=== PATIENT | male | born 1995 | race Caucasian/White ===

== ENCOUNTER 2016-07-22 17:20 | Emergency (ER) | payer OTHER ==
[~2016-07-22] VITALS: Ht 170.2 cm; Wt 99.3 kg
[~2016-07-22 17:20] MED LIST: FAMO1TAB47 PO; HYDCR1CL TOP; LEVE750T PO; LISI-461 PO; TPM/50 PO
[2016-07-22 17:23] VITALS: BP 138/83; PULSE 89; TEMP 36.7; O2SAT 97; Ht 170.2 cm; Wt 99.3 kg
[2016-07-22] MEDS ORDERED: FLUT0.15 NAE (17:41)
[2016-07-22] MEDS ORDERED: VNTHFA/IN INH (17:42)
[2016-07-22] MEDS ORDERED: XYLOCAINE 1%/SOD BICARB 20 ML VIAL INFIL ONE (17:45)
--- NOTE | 2016-07-22 18:02 | EMERGENCY ROOM VISIT NOTE ---
ED Visit Note First contact with patient: 17:35 CHIEF COMPLAINT: Left fifth Finger laceration HISTORY OF PRESENT ILLNESS: This 21-year-old male patient cut the left fifth finger with a pocket knife while he was trying to cut a stick.. The bleeding has stopped. Denies weakness or numbness of the finger. The patient's tetanus is up-to-date REVIEW OF SYSTEMS: 6 system review was performed and was negative unless stated otherwise in history of present illness. PMH: The patient is healthy; hypertension, asthma superficial phlebitis left arm, seizure disorder, sinus surgery SOCIAL HISTORY: Patient lives with his family. The patient admits to tobacco use but denies any alcohol use. PHYSICAL EXAM: Vital Signs: Were reviewed Reviewed Nurse's notes. GEN.: 21-year -old white male appears in no acute distress. MENTAL Status: Alert and oriented 3. LEFT FIFTH FINGER: There is a 1 cm long laceration on the dorsal aspect of the PIP joint. The edges gape apart with traction. There is no foreign material in the wound and it looks clean. There is no bleeding. No deep structures such as tendons or nerves are seen in the base of the wound. Extension of the finger is full and strong. EMERGENCY DEPARTMENT COURSE: The patient was evaluated. Wound Repair: Complexity: Basic. Verbal consent was obtained after the risks and benefits were explained, including but not limited to bleeding, scarring, infection, pain, and bone/joint /nerve damage. The skin was prepped with betadine and a sterile field set. The wound was anesthetized with 1.6ml of 1% buffered lidocaine. Copious irrigation was performed using sterile saline. The wound was explored for foreign bodies and none found. Debridement was not performed. The wound edges were approximated using 5-0 Ethilon with 3simple interrupted sutures. Hemostasis and excellent approximation was achieved. Antibacterial ointment and a sterile dressing applied. Detailed wound care instructions and signs and symptoms of infection reviewed with the patient. No complications and the patient tolerated the procedure well. The patient was placed in a metal finger splint. The patient was discharged home in stable condition. DIAGNOSIS: 1 cm left fifth finger laceration DISCHARGE INSTRUCTIONS & TREATMENT: Watch the area carefully for signs of infection such as redness, swelling, or tenderness. If any should occur, follow -up with your family doctor. Antibiotic ointment and a bandage for 2 days. Keep the wound dry for the first 24 hours. Ibuprofen as needed for pain. Wear finger splint except for bathing until sutures are removed. Suture removal in 8 days. Problem List Medical Problems: (1) Raynaud disease Status: Chronic (2) Seizure disorder Status: Chronic (3) Traumatic brain injury Status: Resolved Current/Historical Medications Scheduled Famotidine (Famotidine), 20 MG PO BID Fluticasone Propionate (Nasal) (Flonase Allergy Relief), 1 SPRAY MATT BID Levetiracetam (Keppra), 1,500 MG PO BID Lisinopril (Lisinopril), 15 MG PO DAILY Topiramate (Topamax), 50 MG PO BID Scheduled PRN Albuterol Hfa (Ventolin Hfa), 2 PUFFS INH Q6H PRN for SOB/Wheezing Allergies Coded Allergies: Sulfa Drugs (Verified Allergy, Mild, throat swelling/hives, 02/25/16) Adhesives (Verified Allergy, Unknown, blisters, 02/25/16) Penicillins (Verified Allergy, Unknown, throat swelling/hives, 02/25/16) Vital Signs Date Time Temp Pulse Resp B/P Pulse Ox O2 Delivery O2 Flow Rate FiO2 07/22/16 17:23 36.7 89 16 138/83 97 Room Air Departure Information Referrals Chantelle Thompson D.O. (PCP) Patient Instructions Formerly [facility]
== END 2016-07-22 18:13 | disposition home or self-care (01) ==
LOC: C.EDB 17:22 → C.EDD 18:13
DX: S61.217A Laceration without foreign body of left little finger without damage to nail, initial encounter (principal); W26.0XXA Contact with knife, initial encounter; Y93.89 Activity, other specified; I10 Essential (primary) hypertension; J45.909 Unspecified asthma, uncomplicated; G40.909 Epilepsy, unspecified, not intractable, without status epilepticus; F17.200 Nicotine dependence, unspecified, uncomplicated; I73.00 Raynaud's syndrome without gangrene; Z87.820 Personal history of traumatic brain injury; Z79.899 Other long term (current) drug therapy

== ENCOUNTER 2016-10-26 13:59 | Emergency (ER) | payer OTHER ==
[~2016-10-26] VITALS: Ht 170.2 cm; Wt 98.3 kg
[~2016-10-26 13:59] MED LIST changes: +FLUT0.15 NAE; -HYDCR1CL TOP; +VNTHFA/IN INH
[2016-10-26 14:20] VITALS: TEMP 36.8; Ht 170.2 cm; Wt 98.3 kg
[2016-10-26] MEDS ORDERED: ACETAMINOPHEN 500 MG TAB PO STA (15:13)
[2016-10-26] MEDS ORDERED: SODIUM CHLORIDE 0.9% 1000ML 1,000 ML IV ONE (15:15)
[2016-10-26] MEDS ORDERED: LISI-729 PO (15:24)
[2016-10-26 16:02] LABS: BASO % 0.5 %; BASO ABS # 0.04 K/uL (0-0.2); COMPLETE YES; EOS % 0.7 %; HEMATOCRIT 41.5 % (42-52); IG% 0.2 %; LYMPH % 24.6 %; LYMPH ABS # 2.14 K/uL (1.2-3.4); MEAN CELL VOLUME 91.4 fL (80-100); MEAN CORPUSCULAR HEMOGLOBIN 32.8 pg (25-34); MEAN CORPUSCULAR HGB CONC 35.9 g/dl (32-36); MEAN PLATELET VOLUME 11.9 fL (7.4-10.4); MONO % 8.4 %; NEUT % 65.6 %; PLATELET COUNT 236 K/uL (130-400); RED BLOOD COUNT 4.54 M/uL (4.7-6.1); WHITE BLOOD COUNT 8.71 K/uL (4.8-10.8)
[2016-10-26 16:04] LABS: URINE APPEARANCE CLEAR (CLEAR); URINE BILIRUBIN NEG (NEG); URINE COLOR YELLOW; URINE NITRITE NEG (NEG); URINE PH 6.5 (4.5-7.5); URINE SPECIFIC GRAVITY 1.022 (1.000-1.030); UROBILINOGEN NEG (NEG); ZZUR CULT IF INDIC CLEAN CATCH NO
[2016-10-26 16:09] LABS: MANUAL MICROSCOPIC REQUIRED? NO; REVIEW REQ? NO
--- NOTE | 2016-10-26 16:14 | DIAGNOSTIC IMAGING REPORT ---
TWO VIEW CHEST CLINICAL HISTORY: Hypertension. FINDINGS: PA and lateral chest radiographs are compared to study dated 09/17/2015. The cardiomediastinal silhouette is unremarkable. There is mild chronic elevation of the right hemidiaphragm. The lungs and pleural spaces are clear. There is no pneumothorax. The bony thorax appears intact. A ventricular shunt catheter traverses the left chest wall. IMPRESSION: No active disease in the chest. Electronically signed by: Fortino Stock M.D. 10/26/2016 4:13 PM Dictated Date/Time: 10/26/2016 4:12 PM
[2016-10-26 16:20] LABS: BUN/CREATININE RATIO 11.9 (10-20); CALCIUM 9.3 mg/dl (8.5-10.1); CREATININE 1.1 mg/dl (0.60-1.40); POTASSIUM 3.8 mmol/L (3.5-5.1)
[2016-10-26 16:31] LABS: ALB/GLOB RATIO 1.2 (0.9-2); THYROID STIMULATING HORMONE 1.88 uIu/ml (0.300-4.500)
[2016-10-26 16:36] LABS: BENZODIAZEPINE, URINE NEG (NEG); COCAINE,URINE NEG (NEG); PHENCYCLIDINE, URINE NEG (NEG)
[2016-10-26 16:57] LABS: LYME DISEASE AB IGG NEG (NEG); LYME DISEASE AB IGM NEG (NEG)
--- NOTE | 2016-10-26 17:21 | EMERGENCY ROOM VISIT NOTE ---
History First contact with patient: 15:01 Chief Complaint: HYPERTENSION Stated Complaint: HIGH BLOOD PRESSURE History of Present Illness The patient is a 21 year old male who presents to the Emergency Room with complaints of elevated blood pressure home. The patient states that he checked his blood pressure today was 130/110. He is on lisinopril daily, and has been on this for several years. He does not take stimulants and does not abuse caffeine or nicotine. The patient is without chest pain, chest tightness, shortness of breath, neck pain, or headache. He contacted his primary care physician regarding the blood pressure, and they referred him to the ER for evaluation. The patient does not have recent travel history. No fever at home. He does not have other complaints. He does not identify aggravating or alleviating factors. He rates his discomfort a 0/10. Review of Systems More than 10 systems were reviewed and otherwise negative with the exception of history of present illness. Past Medical/Surgical History Medical Problems: (1) Asthma, Unspecified (2) Depressive Disorder Nec (3) Hypertension Nos (4) Raynaud disease (5) Seizure disorder (6) Traumatic brain injury Family History Cancer Diabetes mellitus Gallbladder disease Heart disease Hypertension Kidney stones Social History Smoking Status: Never Smoker Alcohol Use: none Marital Status: single Housing Status: lives with family Occupation Status: unemployed Current/Historical Medications Scheduled Famotidine (Famotidine), 20 MG PO BID Fluticasone Propionate (Nasal) (Flonase Allergy Relief), 1 SPRAY MATT BID Levetiracetam (Keppra), 1,500 MG PO BID Lisinopril (Lisinopril), 10 MG PO HS Lisinopril (Zestril), 5 MG PO QAM Topiramate (Topamax), 50 MG PO BID Scheduled PRN Albuterol Hfa (Ventolin Hfa), 2 PUFFS INH Q6H PRN for SOB/Wheezing Allergies Coded Allergies: Sulfa Drugs (Verified Allergy, Mild, throat swelling/hives, 10/26/16) Adhesives (Verified Allergy, Unknown, blisters, 10/26/16) Penicillins (Verified Allergy, Unknown, throat swelling/hives, 10/26/16) Physical Exam Vital Signs Date Time Temp Pulse Resp B/P (MAP) Pulse Ox O2 Delivery O2 Flow Rate FiO2 10/26/16 15:28 Room Air 10/26/16 15:13 67 10/26/16 14:20 36.8 78 20 123/73 97 Room Air Physical Exam VITALS: Vitals are noted on the nurse's note and reviewed by myself. Vital signs stable. GENERAL: Well-developed, well-nourished, white male, who is in no acute distress and resting comfortably. Patient is cooperative with the examination. HEAD: Normocephalic atraumatic. EARS: External ear normal. External auditory canals clear, tympanic membranes pearly ortega without erythema or effusion bilaterally. EYES: Pupils equal round and reactive to light and accommodation. Conjunctivae without injection, sclerae without icterus. Extraocular movements intact. NOSE: Patent, turbinates without inflammation or discharge. MOUTH: Mucous membranes moist. Tonsils are not enlarged. Pharynx without erythema, blood, or exudate. Uvula midline. Airway patent. NECK: Supple without nuchal rigidity. No lymphadenopathy. No thyromegaly. Cervical spine is nontender. HEART: Regular rate and rhythm without murmurs gallops or rubs. LUNGS: Clear to auscultation bilaterally without wheezes, rales or rhonchi. No retractions or accessory muscle use. ABDOMEN: Positive normal bowel sounds x 4. Soft, nontender, without masses or organomegaly. No guarding or rebound tenderness. MUSCULOSKELETAL: No muscle atrophy, erythema, or edema noted. Full range of motion without joint tenderness in all extremities. No tenderness to palpation. Normal gait. Strength 5/5 throughout. NEURO: Patient was alert and oriented to person place and time. CN II through XII grossly intact. Deep tendon reflexes 2+ throughout. No focal neurological deficits SKIN: The skin was without rashes, erythema, edema, or bruising. Capillary reflex less than 2 seconds. Medical Decision & Procedures ER Provider Diagnostic Interpretation: TWO VIEW CHEST CLINICAL HISTORY: Hypertension. FINDINGS: PA and lateral chest radiographs are compared to study dated 09/17/2015. The cardiomediastinal silhouette is unremarkable. There is mild chronic elevation of the right hemidiaphragm. The lungs and pleural spaces are clear. There is no pneumothorax. The bony thorax appears intact. A ventricular shunt catheter traverses the left chest wall. IMPRESSION: No active disease in the chest. Laboratory Results 10/26/16 15:30 Red Blood Count 4.54, Mean Corpuscular Volume 91.4, Mean Corpuscular Hemoglobin 32.8, Mean Corpuscular Hemoglobin Concent 35.9, Mean Platelet Volume 11.9, Neutrophils (%) (Auto) 65.6, Lymphocytes (%) (Auto) 24.6, Monocytes (%) (Auto) 8.4, Eosinophils (%) (Auto) 0.7, Basophils (%) (Auto) 0.5, Neutrophils # (Auto) 5.72, Lymphocytes # (Auto) 2.14, Monocytes # (Auto) 0.73, Eosinophils # (Auto) 0.06, Basophils # (Auto) 0.04 10/26/16 15:30 Test 10/26/16 15:20 10/26/16 15:30 Urine Color YELLOW Urine Appearance CLEAR (CLEAR) Urine pH 6.5 (4.5-7.5) Urine Specific [place] 1.022 (1.000-1.030) Urine Protein NEG (NEG) Urine Glucose (UA) NEG (NEG) Urine Ketones NEG (NEG) Urine Occult Blood NEG (NEG) Urine Nitrite NEG (NEG) Urine Bilirubin NEG (NEG) Urine Urobilinogen NEG (NEG) Urine Leukocyte Esterase NEG (NEG) Urine Opiates Screen NEG (NEG) Urine Methadone, Qualitative NEG (NEG) Urine Barbiturates NEG (NEG) Urine Phencyclidine (PCP) Level NEG (NEG) Ur Amphetamine/Methamphetamine NEG (NEG) MDMA (Ecstasy) Screen NEG (NEG) Urine Benzodiazepines Screen NEG (NEG) Urine Cocaine Metabolite NEG (NEG) Urine Marijuana (THC) NEG (NEG) White Blood Count 8.71 K/uL (4.8-10.8) Red Blood Count 4.54 M/uL (4.7-6.1) Hemoglobin 14.9 g/dL (14.0-18.0) Hematocrit 41.5 % (42-52) Mean Corpuscular Volume 91.4 fL (80-100) Mean Corpuscular Hemoglobin 32.8 pg (25-34) Mean Corpuscular Hemoglobin Concent 35.9 g/dl (32-36) Platelet Count 236 K/uL (130-400) Mean Platelet Volume 11.9 fL (7.4-10.4) Neutrophils (%) (Auto) 65.6 % Lymphocytes (%) (Auto) 24.6 % Monocytes (%) (Auto) 8.4 % Eosinophils (%) (Auto) 0.7 % Basophils (%) (Auto) 0.5 % Neutrophils # (Auto) 5.72 K/uL (1.4-6.5) Lymphocytes # (Auto) 2.14 K/uL (1.2-3.4) Monocytes # (Auto) 0.73 K/uL (0.11-0.59) Eosinophils # (Auto) 0.06 K/uL (0-0.5) Basophils # (Auto) 0.04 K/uL (0-0.2) RDW Standard Deviation 42.6 fL (36.4-46.3) RDW Coefficient of Variation 12.7 % (11.5-14.5) Immature Granulocyte % (Auto) 0.2 % Immature Granulocyte # (Auto) 0.02 K/uL (0.00-0.02) Anion Gap 9.0 mmol/L (3-11) Est Creatinine Clear Calc Drug Dose 116.7 ml/min Estimated GFR () 109.1 Estimated GFR (Non- 94.1 BUN/Creatinine Ratio 11.9 (10-20) Calcium Level 9.3 mg/dl (8.5-10.1) Total Bilirubin 0.2 mg/dl (0.2-1) Aspartate Amino Transf (AST/SGOT) 23 U/L (15-37) Alanine Aminotransferase (ALT/SGPT) 72 U/L (12-78) Alkaline Phosphatase 88 U/L (45-117) Total Protein 7.0 gm/dl (6.4-8.2) Albumin 3.8 gm/dl (3.4-5.0) Globulin 3.2 gm/dl (2.5-4.0) Albumin/Globulin Ratio 1.2 (0.9-2) Thyroid Stimulating Hormone (TSH) 1.880 uIu/ml (0.300-4.500) Lyme Disease IgG Antibody NEG (NEG) Lyme Disease IgM Antibody NEG (NEG) Medications Administered Medications (Trade) Dose Ordered Sig/Jade Route Start Time Stop Time Status Last Admin Dose Admin Sodium Chloride 1,000 ml @ 999 mls/hr Q1H1M ONCE IV 10/26/16 15:15 10/26/16 16:15 DC 10/26/16 15:47 999 MLS/HR Acetaminophen (Tylenol Tab) 1,000 mg NOW STAT PO 10/26/16 15:13 10/26/16 15:16 DC 10/26/16 15:55 1,000 MG ECG Change: Normal sinus rhythm @69 bpm Normal ECG When compared with ECG of 25-FEB-2016 11:55, No significant change was found ED Course Physical exam and history were performed. Nursing notes, EMR, and Medication List were personally reviewed. Patient appears to have reports of elevated blood pressure at home today. The patient appears well on examination and is normotensive here in the department. EKG was performed and is as above. There is no evidence of ischemia or ectopy. IV access was established and labs were obtained. The patient was hydrated with normal saline. Chest x-ray was performed. The patient's blood work is as above and was reviewed. He does not have a significantly elevated white blood cell count, gross anemia, bandemia, or significant electrolyte imbalance. Transaminases are nondiagnostic. TSH is euthyroid. Urine is without evidence of infection. Drug of abuse screen is negative. Chest x-ray does not show acute findings. The patient remained normotensive and in normal sinus rhythm on the vocal music teacher. Overall the patient appears stable for discharge home. He has a long-standing history of hypertension and is on lisinopril. The patient does not appear to have an acute cardiopulmonary event causing an elevated blood pressure. His blood work and exam are benign. The patient will need to follow with his primary care physician for further care and management. He may need adjustments in his medications if symptoms persist. The patient was comfortable with being discharged home and was otherwise invited back to the emergency department with any new, worsening, or concerning symptoms. The chart was completed utilizing [employer] Speech Voice Recognition Software. Grammatical errors, random word insertions, pronoun errors, and incomplete sentences are an occasional consequence of this system due to software limitations, ambient noise, and hardware issues. Any formal questions or concerns about the content, text, or information contained within the body of this dictation should be directly addressed to the provider for clarification. . Medical Decision Differential diagnosis includes, but is not limited to: Myocardial infarction, dysrhythmia, pericarditis, pneumothorax, aortic aneurysm/dissection, DVT/PE, anxiety, GERD, PUD, electrolyte imbalance, thyroid disorder, pneumonia, bronchitis, pancreatitis, and others Impression Primary Impression: Elevated blood pressure reading Departure Information Dispostion Home / Self-Care Condition GOOD Forms HOME CARE DOCUMENTATION FORM, IMPORTANT VISIT INFORMATION Patient Instructions My [facility] Additional Instructions You were seen and evaluated today on an emergency basis only. This is not a substitute for, or an effort to provide, complete comprehensive medical care. It is not possible to recognize and treat all injuries or illnesses in a single emergency department visit. For this reason it is recommended that you followup with your primary care physician in the next week for recheck of your condition. Continue your lisinopril as previously instructed. Drink plenty of fluids and remain well hydrated. You are welcome to return to the emergency department anytime with new, worsening, or concerning symptoms.
[2016-10-26 17:30] VITALS: BP 122/76; PULSE 80; O2SAT 98
== END 2016-10-26 17:30 | disposition home or self-care (01) ==
LOC: C.EDB 14:01 → C.EDC 17:30
DX: R03.0 Elevated blood-pressure reading, without diagnosis of hypertension (principal); I10 Essential (primary) hypertension; F32.9 Major depressive disorder, single episode, unspecified; G40.909 Epilepsy, unspecified, not intractable, without status epilepticus; J45.909 Unspecified asthma, uncomplicated; Z87.820 Personal history of traumatic brain injury; Z88.0 Allergy status to penicillin; Z88.2 Allergy status to sulfonamides; Z91.09 Other allergy status, other than to drugs and biological substances; Z80.9 Family history of malignant neoplasm, unspecified; Z83.3 Family history of diabetes mellitus; Z83.79 Family history of other diseases of the digestive system; Z82.49 Family history of ischemic heart disease and other diseases of the circulatory system; Z84.1 Family history of disorders of kidney and ureter

== ENCOUNTER 2016-12-18 10:37 | Emergency (ER) | payer OTHER ==
[~2016-12-18] VITALS: Ht 170.2 cm; Wt 98.7 kg
[~2016-12-18 10:37] MED LIST changes: +LISI-729 PO
[2016-12-18 10:45] VITALS: TEMP 36.8; Ht 170.2 cm; Wt 98.7 kg
--- NOTE | 2016-12-18 11:26 | DIAGNOSTIC IMAGING REPORT ---
RIGHT ANKLE MIN 3 VIEWS ROUTINE HISTORY: 21 years-old Male right ankle injury Right acute right ankle pain status post twisting injury. Initial exam. COMPARISON: None available. TECHNIQUE: 3 views of the right ankle FINDINGS: There is mild spurring of the medial malleolus. No acute fracture, dislocation or significant degenerative changes. No osteochondral defect. Mild soft tissue swelling is seen circumferentially about the ankle with small joint effusion. No opaque foreign body. IMPRESSION: 1. No fracture or dislocation. 2. Mild soft tissue swelling with small joint effusion. The above report was generated using voice recognition software. It may contain grammatical, syntax or spelling errors. Electronically signed by: Brain Garber M.D. 12/18/2016 11:25 AM Dictated Date/Time: 12/18/2016 11:22 AM
--- NOTE | 2016-12-18 11:54 | EMERGENCY ROOM VISIT NOTE ---
ED Visit Note First contact with patient: 10:49 CHIEF COMPLAINT: Ankle pain HISTORY OF PRESENT ILLNESS: This 21-year-old male patient presents to the emergency department ambulatory after sustaining an injury to the right ankle and foot with a twisting, inversion motion which occurred yesterday. The patient states that yesterday evening, he stepped off of a trailer into a rut and twisted his right foot. The patient complains of pain along the outside of the ankle. The patient denies pain of the foot. The patient rates the pain as dull and 4/10. The patient is able to bear weight on the foot. Constant pain, worse with movement, weight bearing, and the dependent position. No knee pain, the patient is able to move their toes. No numbness or weakness of the foot, no laceration. The patient has not had a previous fracture to this ankle. The patient has taken no medications for the pain. The patient denies any other injury. REVIEW OF SYSTEMS: A 6 system review of systems was completed with positives and pertinent negatives listed in the HPI. ALLERGIES: Adhesives, penicillins, sulfa antibiotics MEDICATIONS: See med list PMH: Seizures SOCIAL HISTORY: The patient lives locally with family. He is a smoker. PHYSICAL EXAM: Vital Signs: Reviewed Nurse's notes, vital signs stable. GENERAL : This is a 21-year-old male, no acute distress, but appears in pain, well- developed, well-nourished. MENTAL STATUS: Alert, oriented to person place and time, and cooperative. MUSCULOSKELETAL: The right ankle is swollen and tender over the lateral malleolus, but the skin is intact and there is no ligamentous instability. There is no fifth metatarsal tenderness. There is no tenderness over the rest of the foot. There is no calf or tibia/fibular tenderness. There is no visual deformity. The foot and toes are warm and well-perfused. Dorsalis pedis pulse 2+. Sensation to pain and light touch is intact. Capillary refill less than 2 seconds. RADIOGRAPHIC FINDINGS: RIGHT ANKLE MIN 3 VIEWS ROUTINE FINDINGS: There is mild spurring of the medial malleolus. No acute fracture, dislocation or significant degenerative changes. No osteochondral defect. Mild soft tissue swelling is seen circumferentially about the ankle with small joint effusion. No opaque foreign body. IMPRESSION: 1. No fracture or dislocation. 2. Mild soft tissue swelling with small joint effusion. EMERGENCY DEPARTMENT COURSE: I examined the patient. X-rays of the right ankle were reviewed by myself and read by radiology and reveal no acute fractures. Gel ankle splint was applied to the ankle under my direction and the position was satisfactory. Neurovascular status was rechecked and intact. Conservative measures were discussed. He was given orthopedic information for follow-up. The patient was discharged home in good condition. DIAGNOSIS: Right ankle injury Problem List Medical Problems: (1) Raynaud disease Status: Chronic (2) Seizure disorder Status: Chronic (3) Traumatic brain injury Status: Resolved Current/Historical Medications Scheduled Famotidine (Famotidine), 20 MG PO BID Fluticasone Propionate (Nasal) (Flonase Allergy Relief), 1 SPRAY MATT BID Levetiracetam (Keppra), 1,500 MG PO BID Lisinopril (Lisinopril), 10 MG PO HS Lisinopril (Zestril), 5 MG PO QAM Topiramate (Topamax), 50 MG PO BID Scheduled PRN Albuterol Hfa (Ventolin Hfa), 2 PUFFS INH Q6H PRN for SOB/Wheezing Allergies Coded Allergies: Sulfa Drugs (Verified Allergy, Mild, throat swelling/hives, 12/18/16) Adhesives (Verified Allergy, Unknown, blisters, 12/18/16) Penicillins (Verified Allergy, Unknown, throat swelling/hives, 12/18/16) Vital Signs Date Time Temp Pulse Resp B/P (MAP) Pulse Ox O2 Delivery O2 Flow Rate FiO2 12/18/16 12:05 77 20 126/78 93 12/18/16 10:45 36.8 93 16 126/84 97 Room Air Departure Information Impression Primary Impression: Right ankle injury Dispostion Home / Self-Care Condition GOOD Referrals Chantelle Thompson D.O. (PCP) Sabas Wang M.D. Patient Instructions My [facility] Additional Instructions You have been treated in the Emergency Department for an Ankle injury. For pain control, you can use the following [id number] medicines (if >12 yo): - Regular strength (325mg/tab) Tylenol (acetaminophen) 2 tabs every 4-6 hours as needed. Do not exceed 12 tablets in a 24 hour period. Avoid taking more than 4 grams (4000 mg) of Tylenol per day. This includes any other sources of acetaminophen you may take on a regular basis. - Regular strength (200 mg/tab) Advil (ibuprofen) 1-2 tabs every 4-6 hours as needed. Do not exceed a dose of 3200 mg per day. If this is a recent injury (<24 hrs), ice can be applied to the area of pain for the first 3 days to help decrease pain and inflammation. Wear the brace as needed for pain and difficulty walking. Follow up with orthopedics as needed for persistent pain or difficulty walking. Return to the Emergency Department if your current symptoms worsen despite treatment course outlined above, or if you develop any of the following symptoms : intractable pain despite aforementioned treatment course or new onset of numbness or tingling of the foot.
[2016-12-18 12:05] VITALS: BP 126/78; PULSE 77; O2SAT 93
== END 2016-12-18 12:07 | disposition home or self-care (01) ==
LOC: C.EDB 10:39 → C.EDD 12:07
DX: S99.911A Unspecified injury of right ankle, initial encounter (principal); X50.9XXA Other and unspecified overexertion or strenuous movements or postures, initial encounter; R56.9 Unspecified convulsions; I73.00 Raynaud's syndrome without gangrene

== ENCOUNTER 2017-04-14 12:16 | Emergency (ER) | payer OTHER ==
[~2017-04-14] VITALS: Ht 170.2 cm; Wt 96.0 kg
[2017-04-14 12:24] VITALS: TEMP 36.8; Ht 170.2 cm; Wt 96.0 kg
[2017-04-14] MEDS ORDERED: SODIUM CHLORIDE 0.9% 1000ML 1,000 ML IV STA (12:46)
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
--- NOTE | 2017-04-14 13:06 | DIAGNOSTIC IMAGING REPORT ---
CHEST ONE VIEW PORTABLE CLINICAL HISTORY: 22 years-old Male presenting with CHEST PAIN. TECHNIQUE: Portable upright AP view of the chest was obtained. COMPARISON: 10/26/2016. FINDINGS: Ventricular peritoneal shunt descends along the left hemithorax. Cardiac mediastinal silhouette normal. Artifacts noted across the lung bases. Lungs and pleural spaces clear. Osseous structures normal. Upper abdomen normal. IMPRESSION: 1. No acute cardiopulmonary disease. Electronically signed by: Felix Venegas M.D. 04/14/2017 1:04 PM Dictated Date/Time: 04/14/2017 1:04 PM
[2017-04-14 13:39] LABS: BASO % 0.9 %; BASO ABS # 0.06 K/uL (0-0.2); EOS % 1.6 %; EOS ABS # 0.11 K/uL (0-0.5); HEMATOCRIT 47.9 % (42-52); HEMOGLOBIN 17.1 g/dL (14.0-18.0); IG# 0.01 K/uL (0.00-0.02); LYMPH % 27.6 %; LYMPH ABS # 1.93 K/uL (1.2-3.4); MEAN CELL VOLUME 90.2 fL (80-100); MEAN CORPUSCULAR HEMOGLOBIN 32.2 pg (25-34); MEAN CORPUSCULAR HGB CONC 35.7 g/dl (32-36); MEAN PLATELET VOLUME 11.4 fL (7.4-10.4); MONO % 7.6 %; MONO ABS # 0.53 K/uL (0.11-0.59); NEUT % 62.2 %; NEUT ABS # 4.35 K/uL (1.4-6.5); PLATELET COUNT 245 K/uL (130-400); RED CELL DISTRIBUTION WIDTH CV 12.3 % (11.5-14.5); RED CELL DISTRIBUTION WIDTH SD 40.2 fL (36.4-46.3); WHITE BLOOD COUNT 6.99 K/uL (4.8-10.8)
[2017-04-14 14:20] LABS: ALBUMIN 4.1 gm/dl (3.4-5.0); CALCIUM 9.1 mg/dl (8.5-10.1); CREATININE 0.93 mg/dl (0.60-1.40); TOTAL PROTEIN 7.9 gm/dl (6.4-8.2)
--- NOTE | 2017-04-14 14:31 | DIAGNOSTIC IMAGING REPORT ---
GALLBLADDER-ABD LIMITED CLINICAL HISTORY: 22 years-old Male presenting with eval for GB disease. TECHNIQUE: Real-time grayscale and limited color Doppler ultrasound imaging of the abdomen limited to the right upper quadrant was performed. COMPARISON: 08/28/[address] from 09/17/2015. FINDINGS: Pancreas: Visualized portions of the pancreatic head and body normal. Liver: Moderately hyperechogenic parenchyma with partial obscuration of the right hemidiaphragm, likely indicating moderate steatosis. The liver measures cm in maximal sagittal dimension. Fatty sparing suggested at the gallbladder fossa. Main portal vein patent with normal directional flow. Biliary: No intrahepatic biliary ductal dilatation. Common bile duct measures up to 4 mm in diameter. Gallbladder: No evidence of gallstones, gallbladder wall thickening, gallbladder distention, or pericholecystic fluid or inflammatory change. Right kidney: Normal in appearance. No hydronephrosis. Ascites: None. IMPRESSION: 1. Hepatic steatosis. Correlate with liver function tests to exclude steatohepatitis as a cause for abdominal pain. 2. No cholelithiasis or bladder ductal dilatation. Electronically signed by: Felix Venegas M.D. 04/14/2017 2:29 PM Dictated Date/Time: 04/14/2017 2:27 PM
[2017-04-14] MEDS ORDERED: SERT1TAB88 PO (14:59)
[2017-04-14 15:25] VITALS: BP 113/64; PULSE 62; O2SAT 98
== END 2017-04-14 15:25 | disposition home or self-care (01) ==
LOC: C.EDB 12:17 → C.EDC 15:25
DX: R10.11 Right upper quadrant pain (principal); J45.909 Unspecified asthma, uncomplicated; F32.9 Major depressive disorder, single episode, unspecified; I10 Essential (primary) hypertension; I73.00 Raynaud's syndrome without gangrene; G40.909 Epilepsy, unspecified, not intractable, without status epilepticus; Z83.3 Family history of diabetes mellitus; Z82.49 Family history of ischemic heart disease and other diseases of the circulatory system; F17.200 Nicotine dependence, unspecified, uncomplicated

== ENCOUNTER 2017-04-24 21:18 | Emergency (ER) | payer OTHER ==
[~2017-04-24] VITALS: Ht 170.2 cm; Wt 95.6 kg
[~2017-04-24 21:18] MED LIST changes: +SERT1TAB88 PO
[2017-04-24 21:40] VITALS: TEMP 36.7; Ht 170.2 cm; Wt 95.6 kg
--- NOTE | 2017-04-24 22:30 | DIAGNOSTIC IMAGING REPORT ---
R TIBIA/FIBULA 2 VIEWS ROUTINE CLINICAL HISTORY: Right leg pain status post trauma COMPARISON: None. DISCUSSION: No acute fractures or dislocations are visualized. IMPRESSION: No fractures identified. Electronically signed by: Louis Davies M.D. 04/24/2017 10:28 PM Dictated Date/Time: 04/24/2017 10:28 PM
--- NOTE | 2017-04-24 22:50 | DIAGNOSTIC IMAGING REPORT ---
(CHEST) THORAX WITHOUT CLINICAL HISTORY: Left lateral rib pain status post trauma COMPARISON STUDY: No previous studies for comparison. CT DOSE: 518.01 mGy.cm TECHNIQUE: CT of the thorax was performed from the thoracic inlet to the lung bases. Images are reviewed in the axial, sagittal, and coronal planes. IV contrast was not administered for this examination. A dose lowering technique was utilized adhering to the principles of ALARA. FINDINGS: Thyroid: Imaged portions of the thyroid gland are normal in appearance. Thoracic aorta: The thoracic aorta is normal in course and caliber, noting standard 3 vessel arch anatomy. Heart: The heart is normal in size and configuration, without pericardial effusion. Lungs and pleural spaces: There is no pneumothorax. There are no pleural effusions. There is no focal pulmonary consolidation. Mediastinum: There is no mediastinal lymphadenopathy. Connie: There is no evidence of pathologic hilar adenopathy given the limitations of a noncontrast study Axilla: There is no evidence of pathologic axillary lymphadenopathy Upper abdomen: Partially visualized upper abdominal viscera is within normal limits. Skeletal structures: No fractures are visualized. IMPRESSION: No evidence of acute intrathoracic injury. Electronically signed by: Louis Davies M.D. 04/24/2017 10:49 PM Dictated Date/Time: 04/24/2017 10:46 PM
[2017-04-24 23:12] VITALS: BP 132/86; PULSE 80; O2SAT 98
--- NOTE | 2017-04-25 00:32 | EMERGENCY ROOM VISIT NOTE ---
ED Visit Note First contact with patient: 22:07 I have personally evaluated this patient examined her and reviewed the pertinent labs and data. I have discussed the case with Xiomara Jones, the physician assistant women's rowing coach and agree with the plan. Please refer to the PA note. This patient comes in after suffering a fall and hitting his chest on an object. He has minimal tenderness on exam .his abdomen is benign imaging was negative. He will be discharged home and return if any new problems or concerns.
--- NOTE | 2017-04-25 00:38 | EMERGENCY ROOM VISIT NOTE ---
History First contact with patient: 22:07 Chief Complaint: FALL Stated Complaint: FELL,HURT L RIBCAGE AND R WHITING History of Present Illness The patient is a 22 year old male who presents to the Emergency Room with complaints of left lateral chest wall pain and right whiting pain after he tripped over a pipe walking in the dark. Tetanus is current. Pain currently 5 out of 10. Worse with movement and better with rest. It does not radiate. No prior fractures to this area. Patient denies head injury, neck pain, back pain, abdominal pain, dyspnea, numbness, tingling or any other medical complaints. Review of Systems See HPI for pertinent positives & negatives. A total of 10 systems reviewed and were otherwise negative. Past Medical/Surgical History Medical Problems: (1) Asthma, Unspecified (2) Depressive Disorder Nec (3) Hypertension Nos (4) Raynaud disease (5) Seizure disorder (6) Traumatic brain injury Family History Cancer Diabetes mellitus Gallbladder disease Heart disease Hypertension Kidney stones Social History Smoking Status: Current Some Day Smoker Smokeless Tobacco Use: Yes Alcohol Use: none Marital Status: single Housing Status: lives with family Occupation Status: unemployed Current/Historical Medications Scheduled Famotidine (Famotidine), 20 MG PO BID Fluticasone Propionate (Nasal) (Flonase Allergy Relief), 1 SPRAY MATT BID Levetiracetam (Keppra), 1,500 MG PO BID Lisinopril (Lisinopril), 10 MG PO HS Lisinopril (Zestril), 5 MG PO QAM Topiramate (Topamax), 50 MG PO BID Scheduled PRN Albuterol Hfa (Ventolin Hfa), 2 PUFFS INH Q6H PRN for SOB/Wheezing Physical Exam Vital Signs Date Time Temp Pulse Resp B/P (MAP) Pulse Ox O2 Delivery O2 Flow Rate FiO2 04/24/17 23:12 80 18 132/86 98 04/24/17 21:40 36.7 75 18 131/84 98 Room Air Physical Exam PHYSICAL EXAM: VITALS: Vitals are noted on the nurse's note and reviewed by myself. Vital signs stable. GENERAL: Pleasant male spitting chew tobacco in front of me, in no acute distress, nondiaphoretic, well-developed well-nourished. SKIN: Superficial abrasion to right mid chin without signs of infection and bleeding controlled The rest of the skin was without obvious lacerations or abrasions. Capillary reflex less than 2 seconds. HEAD: Normocephalic atraumatic. EARS: External auditory canals clear, tympanic membranes pearly ortega without erythema or effusion bilaterally. No hemotympanums. No silva sign. No mastoid tenderness. EYES: Pupils equal round and reactive to light and accommodation. Conjunctivae without injection, sclerae without icterus. Extraocular movements intact. NOSE: Patent, turbinates without inflammation or discharge. No sinus tenderness. No septal hematoma or bleeding. FACE: No facial bone tenderness. Full range of motion of the jaw without tenderness. MOUTH: Mucous membranes moist. Pharynx without erythema or exudate. Uvula midline. Airway patent. Tongue does not deviate. NECK: Supple without nuchal rigidity. Cervical spine is nontender. Full range of motion of the neck without tenderness. No JVD. HEART: Regular rate and rhythm without murmurs gallops or rubs. LUNGS: Clear to auscultation bilaterally without wheezes, rales or rhonchi. No dullness to percussion. No retractions or accessory muscle use. Left lateral chest wall tenderness easily reproducing symptoms. ABDOMEN: Positive bowel sounds x 4. Normal tympanic percussion. Soft, nontender, without masses or organomegaly. No guarding or rebound tenderness. MUSCULOSKELETAL: No tenderness of the thoracic or lumbar spine. No tenderness with pelvic rocking. Right midshin minimally tender to palpation without deformity. Full range of motion without tenderness to palpation in all other extremities. Normal gait. Strength 5/5 throughout. NEURO: Patient was alert and oriented to person place and time. Normal sensation to light and sharp touch. No focal neurological deficits. Medical Decision & Procedures ED Course Prior records/ancillary studies reviewed. Triage Nursing notes reviewed. Additional history obtained from family. The patient's history was concerning for traumatic injury Differential diagnosis: Etiologies such as fracture, dislocation, intra-abdominal, pneumothorax, intrathoracic , intracranial, neurologic, as well as other traumatic pathologies were entertained. Physical examination findings: As above. The patients vitals were stable. ER treatment provided: Wound care by nursing, incentive spirometry Patient declined pain meds On reassessment the patient felt better. Vital signs were stable. Diagnostic interpretation by me: Imaging studies: [] R TIBIA/FIBULA 2 VIEWS ROUTINE CLINICAL HISTORY: Right leg pain status post trauma COMPARISON: None. DISCUSSION: No acute fractures or dislocations are visualized. IMPRESSION: No fractures identified. FINDINGS: Thyroid: Imaged portions of the thyroid gland are normal in appearance. Thoracic aorta: The thoracic aorta is normal in course and caliber, noting standard 3 vessel arch anatomy. Heart: The heart is normal in size and configuration, without pericardial effusion. Lungs and pleural spaces: There is no pneumothorax. There are no pleural effusions. There is no focal pulmonary consolidation. Mediastinum: There is no mediastinal lymphadenopathy. Connie: There is no evidence of pathologic hilar adenopathy given the limitations of a noncontrast study Axilla: There is no evidence of pathologic axillary lymphadenopathy Upper abdomen: Partially visualized upper abdominal viscera is within normal limits. Skeletal structures: No fractures are visualized. IMPRESSION: No evidence of acute intrathoracic injury. Electronically signed by: Louis Davies M.D. 04/24/2017 10:49 PM Electronically signed by: Louis Davies M.D. 04/24/2017 10:28 PM Dictated Date/Time: 04/24/2017 10:28 PM This appears to be consistent with chest wall injury, abrasion and leg injury. Patient was neurovascularly and neurologically intact. No other injuries are noted. He was ambulating without difficulties. He was advised to do incentive spirometry and counseled on wound care. He was advised to follow-up family care in a few days or here in the ER sooner for chest pain, difficulty breathing, worsening signs or symptoms or as needed. Patient's tetanus was current per his report. By the evaluation outlined above emergent etiologies such as fracture, dislocation, intra-abdominal, pneumothorax, pulmonary contusion, hemothorax, intracranial, neurologic,as well as others were deemed relatively unlikely. The pt informed about the findings as listed above. All questions were answered and pleased with the treatment. Return instructions were outlined and the patient was discharged in stable condition. Referral: The patient was referred to PCP for follow-up in 2 to 3 days for a recheck of the current condition. case reviewed with my Attending. The chart was completed utilizing [employer] recognition software. Grammatical errors, random word insertions, pronoun errors, and incomplete sentences are an occassional consequence of this system due to software limitations, ambient noise, and hardware issues. Any formal questions or concerns about the content, text, or information contained within the body of this dictation should be directly addressed to the physician assurance assistant for clarification. Medical Decision As above Head Trauma GCS Score: 15 Medication Reconcilliation Current Medication List: was personally reviewed by me Blood Pressure Screening Patient's blood pressure: Normal blood pressure Impression Primary Impression: Chest wall injury Additional Impressions: Abrasion of right lower leg Injury of right whiting Fall Departure Information Dispostion Home / Self-Care Condition GOOD Forms HOME CARE DOCUMENTATION FORM, IMPORTANT VISIT INFORMATION Patient Instructions My [facility], ED Abrasion, ED Contusion Rib Additional Instructions Strongly recommend that you quit chewing tobacco and smoking. Incentive spirometry 10 times an hour while you're awake for the next 2 weeks. Ibuprofen(Motrin, Advil) may be used for fever or pain. Use 600mg every six hours as needed. Take with food. Avoid using more than 2400mg in a 24 hour period. Do not use 2400mg per day for more than three consecutive days without physician direction. Prolonged inappropriate use can lead to stomach upset or ulcers. (AND/OR) Acetaminophen(Tylenol) may be used for fever or pain. Use 1000mg every six hours as needed. Avoid using more than 3000mg in a 24 hour period. Rest and drink plenty of fluids as tolerated. Continue current medications. Avoid strenuous activities and anything that worsens your pain. Resume normal activities once your symptoms resolve. Return to the ER immediately for worsening or persistent chest pain, abdominal pain, vomiting, fevers, chest pains, difficulty breathing, worsening of your condition, or as needed. Follow up with your primary physician in 2-3 days for a recheck of your current condition. Abrasion: Antibiotic ointment and bandage to the areas until healed. Follow up with family doctor or return for any signs of infection (increasing redness, swelling , drainage, or fever). Keep covered when in sun until fully healed then SPF 50 or higher until scar healed. Problem Qualifiers Primary Impression: Chest wall injury Encounter type: initial encounter Qualified Codes: S29.9XXA - Unspecified injury of thorax, initial encounter
== END 2017-04-24 23:12 | disposition home or self-care (01) ==
LOC: C.EDB 21:20 → C.EDD 23:12
DX: S29.9XXA Unspecified injury of thorax, initial encounter (principal); S80.811A Abrasion, right lower leg, initial encounter; S00.81XA Abrasion of other part of head, initial encounter; W18.09XA Striking against other object with subsequent fall, initial encounter; J45.909 Unspecified asthma, uncomplicated; I10 Essential (primary) hypertension; G40.909 Epilepsy, unspecified, not intractable, without status epilepticus; I73.00 Raynaud's syndrome without gangrene; F17.200 Nicotine dependence, unspecified, uncomplicated; F17.220 Nicotine dependence, chewing tobacco, uncomplicated; Z87.820 Personal history of traumatic brain injury; Z79.899 Other long term (current) drug therapy; Z83.3 Family history of diabetes mellitus; Z82.49 Family history of ischemic heart disease and other diseases of the circulatory system; Z84.1 Family history of disorders of kidney and ureter

== ENCOUNTER 2017-05-04 17:03 | Emergency (ER) | payer OTHER ==
[~2017-05-04] VITALS: Ht 167.6 cm; Wt 97.7 kg
[~2017-05-04 17:03] MED LIST changes: -SERT1TAB88 PO
[2017-05-04 17:05] VITALS: TEMP 37; Ht 167.6 cm; Wt 97.7 kg
[2017-05-04] MEDS ORDERED: KETOROLAC TROMETHAMINE 30 MG/ML VIAL IV STA (17:26)
[2017-05-04] MEDS ORDERED: DiphenhydrAMINE HCL 50 MG/ML VIAL IV STA (17:26)
[2017-05-04] MEDS ORDERED: PROCHLORPERAZINE 5 MG/ML 2 ML VIAL IV STA (17:26)
[2017-05-04] MEDS ORDERED: SODIUM CHLORIDE 0.9% 1000ML 1,000 ML IV ONE (17:30)
--- NOTE | 2017-05-04 17:32 | EMERGENCY ROOM VISIT NOTE ---
History First contact with patient: 17:10 Chief Complaint: HEADACHE Stated Complaint: LIGHT HEADED,DIZZY,HEADACHE History of Present Illness The patient is a 22 year old male who presents to the Emergency Room with complaints of lightheadedness and a slight headache for the last 5 days. His symptoms are worse upon standing, and better lying down. He has tried ibuprofen with minimal relief. He reports eating and drinking normally. No infectious symptoms such as cough or fever. He denies any chest pain or pressure. No heart palpitations. No difficulty breathing. 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 He has a shunt placed. He denies any recent seizures. No changes in his seizure medication. He was however started on Topamax 6 days ago for reported anger management issues. Review of Systems 10 system review performed and negative unless noted in HPI or below Past Medical/Surgical History Medical Problems: (1) Asthma, Unspecified (2) Depressive Disorder Nec (3) Hypertension Nos (4) Raynaud disease (5) Seizure disorder (6) Traumatic brain injury Family History Cancer Diabetes mellitus Gallbladder disease Heart disease Hypertension Kidney stones Social History Smoking Status: Current Some Day Smoker Alcohol Use: none Marital Status: single Housing Status: lives with family Occupation Status: unemployed Current/Historical Medications Scheduled Famotidine (Famotidine), 20 MG PO BID Fluticasone Propionate (Nasal) (Flonase Allergy Relief), 1 SPRAY MATT BID Levetiracetam (Keppra), 1,500 MG PO BID Lisinopril (Lisinopril), 10 MG PO HS Lisinopril (Zestril), 5 MG PO QAM Topiramate (Topamax), 50 MG PO BID Topiramate (Topiramate), 25 MG PO BID Scheduled PRN Albuterol Hfa (Ventolin Hfa), 2 PUFFS INH Q6H PRN for SOB/Wheezing Physical Exam Vital Signs Date Time Temp Pulse Resp B/P (MAP) Pulse Ox O2 Delivery O2 Flow Rate FiO2 05/04/17 19:17 93 16 115/68 98 Room Air 05/04/17 17:46 110 18 117/69 99 Room Air 117 129/76 105 127/71 05/04/17 17:05 37.0 86 20 144/83 98 Room Air Physical Exam VITALS: Vitals are noted on the nurse's note and reviewed by myself. Vital signs stable. GENERAL: 22-year-old male, in no acute distress, nondiaphoretic, well-developed well-nourished. SKIN: The skin was without rashes, erythema, edema, or bruising. HEAD: Well-healed scar noted over the forehead. Otherwise, atraumatic and normocephalic. EARS: External auditory canals clear, tympanic membranes pearly ortega without erythema or effusion bilaterally. EYES: Pupils equal round and reactive to light and accommodation. Conjunctivae without injection, sclerae without icterus. Extraocular movements intact. MOUTH: Mucous membranes fairly dry NECK: Supple without nuchal rigidity. Cervical spine is nontender. No JVD. HEART: Regular rate and rhythm without murmurs gallops or rubs. LUNGS: Clear to auscultation bilaterally without wheezes, rales or rhonchi. No accessory muscle use. ABDOMEN: Positive bowel sounds x 4.Soft, MUSCULOSKELETAL: No muscle atrophy, erythema, or edema noted. Strength 5/5 throughout. NEURO: Patient was alert and oriented to person place and time. Cerebellar function intact. Normal sensation to touch. No focal neurological deficits. Medical Decision & Procedures ER Provider Diagnostic Interpretation: CT head without contrast Patient Name: YANDEL CRABTREE Unit Number: [id number] Dictated: 05/04/171819 Transcribed: 05/04/171819 [facility] Printed Date/Time: [~ rep prt dt]/[~ rep prt tm] [~ rep ct labl] - [~ rep ct ivnm] [facility] [place] [address] Dictated: 05/04/171819 Transcribed: 05/04/171819 [facility] Printed Date/Time: [~ rep prt dt]/[~ rep prt tm] [~ rep ct labl] - [~ rep ct ivnm] IMPRESSION: 1. No acute intracranial abnormality identified. No acute intracranial hemorrhage. 2. Chronic changes as above with unchanged positioning of left frontal shunt catheter. 3. Persistent ventricular dilation. The above report was generated using voice recognition software. It may contain grammatical, syntax or spelling errors. Electronically signed by: Brain Garber M.D. 05/04/2017 6:27 PM Dictated Date/Time: 05/04/2017 6:20 PM The status of this report is Signed. Draft = Not yet reviewed or approved by Radiologist. Signed = Reviewed and approved by Radiologist. <AttendingPhy></AttendingPhy> <FamilyPhy>Chantelle Thompson D.O.</FamilyPhy> < PrimaryPhy>Chantelle Thompson D.O.</PrimaryPhy> <UnitNumber>[id number]</ UnitNumber> <VisitNumber>[id number]</VisitNumber> <PatientName>YANDEL CRABTREE</PatientName> <DateOfBirth>1995</DateOfBirth> <Location>C.[facility] </Location> <ServiceDate>05/04/17</ServiceDate> <MNE>ESINDI</MNE> <OrderingPhy> Maureen Leonardo PA-C</OrderingPhy> <OrderingPhyMNE>f rep ord dr salvador</ OrderingPhyMNE> <DictatingPhyMNE>f rep dict dr salvador</DictatingPhyMNE> <CCListMNE> f rep ct mne</CCListMNE> <AdmittingPhyMNE>f pt admit dr salvador</AdmittingPhyMNE> < AttendingPhyMNE>f pt attend dr salvador</AttendingPhyMNE> <ConsultingPhyMNE>f pt consult dr salvador</ConsultingPhyMNE> <FamilyPhyMNE>f pt fam dr salvador</FamilyPhyMNE> <OtherPhyMNE>f pt other dr salvador</OtherPhyMNE> < PrimaryPhyMNE>f pt prim care dr salvador</PrimaryPhyMNE> <ReferringPhyMNE>f pt referring dr salvador</ReferringPhyMNE> Laboratory Results 05/04/17 17:23 Red Blood Count 4.97, Mean Corpuscular Volume 90.9, Mean Corpuscular Hemoglobin 32.4, Mean Corpuscular Hemoglobin Concent 35.6, Mean Platelet Volume 12.0, Neutrophils (%) (Auto) 72.4, Lymphocytes (%) (Auto) 15.2, Monocytes (%) (Auto) 10.2, Eosinophils (%) (Auto) 1.2, Basophils (%) (Auto) 0.6, Neutrophils # (Auto ) 5.82, Lymphocytes # (Auto) 1.22, Monocytes # (Auto) 0.82, Eosinophils # (Auto ) 0.10, Basophils # (Auto) 0.05 05/04/17 17:23 Test 05/04/17 17:23 White Blood Count 8.04 K/uL (4.8-10.8) Red Blood Count 4.97 M/uL (4.7-6.1) Hemoglobin 16.1 g/dL (14.0-18.0) Hematocrit 45.2 % (42-52) Mean Corpuscular Volume 90.9 fL (80-100) Mean Corpuscular Hemoglobin 32.4 pg (25-34) Mean Corpuscular Hemoglobin Concent 35.6 g/dl (32-36) Platelet Count 245 K/uL (130-400) Mean Platelet Volume 12.0 fL (7.4-10.4) Neutrophils (%) (Auto) 72.4 % Lymphocytes (%) (Auto) 15.2 % Monocytes (%) (Auto) 10.2 % Eosinophils (%) (Auto) 1.2 % Basophils (%) (Auto) 0.6 % Neutrophils # (Auto) 5.82 K/uL (1.4-6.5) Lymphocytes # (Auto) 1.22 K/uL (1.2-3.4) Monocytes # (Auto) 0.82 K/uL (0.11-0.59) Eosinophils # (Auto) 0.10 K/uL (0-0.5) Basophils # (Auto) 0.05 K/uL (0-0.2) RDW Standard Deviation 40.9 fL (36.4-46.3) RDW Coefficient of Variation 12.4 % (11.5-14.5) Immature Granulocyte % (Auto) 0.4 % Immature Granulocyte # (Auto) 0.03 K/uL (0.00-0.02) Anion Gap 7.0 mmol/L (3-11) Est Creatinine Clear Calc Drug Dose 124.6 ml/min Estimated GFR () 121.6 Estimated GFR (Non- 104.9 BUN/Creatinine Ratio 14.5 (10-20) Calcium Level 9.1 mg/dl (8.5-10.1) Total Bilirubin 0.3 mg/dl (0.2-1) Aspartate Amino Transf (AST/SGOT) 23 U/L (15-37) Alanine Aminotransferase (ALT/SGPT) 60 U/L (12-78) Alkaline Phosphatase 119 U/L (45-117) Total Protein 8.0 gm/dl (6.4-8.2) Albumin 4.2 gm/dl (3.4-5.0) Globulin 3.8 gm/dl (2.5-4.0) Albumin/Globulin Ratio 1.1 (0.9-2) Lyme Disease IgG Antibody NEG (NEG) Lyme Disease IgM Antibody NEG (NEG) Medications Administered Medications (Trade) Dose Ordered Sig/Jade Route Start Time Stop Time Status Last Admin Dose Admin Sodium Chloride 1,000 ml @ 999 mls/hr Q1H1M ONCE IV 05/04/17 17:30 05/04/17 18:30 DC 05/04/17 17:41 999 MLS/HR Ketorolac Tromethamine (Toradol Inj) 30 mg NOW STAT IV 05/04/17 17:26 05/04/17 17:29 DC 05/04/17 17:41 30 MG Prochlorperazine Edisylate (Compazine Inj) 10 mg NOW STAT IV 05/04/17 17:26 05/04/17 17:29 DC 05/04/17 17:41 10 MG Diphenhydramine HCl (Benadryl Inj) 25 mg NOW STAT IV 05/04/17 17:26 05/04/17 17:29 DC 05/04/17 17:41 25 MG ED Course Patient was seen and examined Vital signs including blood pressure were reviewed medications list was verified with patient Labs were obtained, and a saline lock was established The patient was hydrated with 1 L of normal saline. He was medicated with Compazine, Benadryl and Toradol. Upon reevaluation, the patient was resting comfortably in bed. We discussed the results of his workup. He voiced understanding. The patient was also seen by my supervising physician, who is in agreement with my plan. I reviewed discharge instructions the patient. They voiced understanding and had no further questions. Medical Decision Differential diagnosis: Migraine, absence seizure, acute intracranial abnormality, increased ICP, cluster headaches, dehydration, cardiac arrhythmia This patient is a 22-year-old male that presents to the emergency department with lightheadedness and a headache. He has a history of it TBI. On exam, he is neurologically intact. He did appear sightly dehydrated. The patient's lab work is unremarkable. There is no leukocytosis. He is afebrile. I do not suspect an infectious cause. Given his history of TBI and shunt placement, I ordered a CT. This did not show any acute intracranial abnormalities. The patient had good pain relief in the emergency department. This is possibly an atypical migraine. I believe he is stable to be discharged home. He was urged to follow-up with his primary care physician as soon as possible in addition to his neurologist. He will return to the emergency department with any new or concerning symptoms. This chart was completed in part utilizing [employer] Voice Recognition software. Attempts were made to minimize the grammatical errors, random word insertions, pronoun errors and incomplete sentences. Any formal questions or concerns about the content, text or information contained within the body of this dictation should be directly addressed to the provider for clarification. Medication Reconcilliation Current Medication List: was personally reviewed by nh Blood Pressure Screening Patient's blood pressure: Normal blood pressure Impression Primary Impression: Headache Departure Information Dispostion Home / Self-Care Condition GOOD Referrals Chantelle Thompson D.O. (PCP) Patient Instructions My [facility] Additional Instructions Yandel has been evaluated in the emergency department for lightheadedness and headache. A CAT scan was performed. It did not show any acute abnormalities. Please continue medications as prescribed. Stay well hydrated. Increase your fluids such as Gatorade or water over the next 48 hours. Ibuprofen 600 mg and/or Tylenol 1000 mg every 8 hours for pain You may also alternate these medications for more effective pain relief: Ibuprofen --4 HRS--> Tylenol --4 HRS--> ibuprofen --4 HRS--> Tylenol ..... Do not hesitate to return to the emergency department with any new, worsening or concerning symptoms.
[2017-05-04] MEDS ORDERED: TPM25 PO (17:38)
[2017-05-04 18:00] LABS: ALBUMIN 4.2 gm/dl (3.4-5.0); CALCIUM 9.1 mg/dl (8.5-10.1); POTASSIUM 3.7 mmol/L (3.5-5.1)
--- NOTE | 2017-05-04 18:29 | DIAGNOSTIC IMAGING REPORT ---
HEAD WITHOUT CONTRAST (CT) CLINICAL HISTORY: 22 years-old Male with lightheaded hx TBI and shunt placement. Acute lightheadedness. TECHNIQUE: Multiple axial CT images of the head were obtained without contrast. A dose lowering technique was utilized adhering to the principles of ALARA. CT DOSE: 687.98 mGy.cm COMPARISON: Head CT 09/17/2015. FINDINGS: Left frontal horn shunt catheter is unchanged in position. Transverse dimension of the frontal horns measures 5.8 cm, previously 5.9 cm. Bifrontal and right temporal encephalomalacia redemonstrated with ex vacuo ventriculomegaly of the right temporal horn appearing unchanged. Prequel calcifications adjacent to the right frontal horn are unchanged. No acute intracranial hemorrhage or midline shift. No acute territorial infarction. Postoperative changes from prior right frontal craniotomy. Chronic right subdural calcifications appear unchanged. Fixation hardware of the frontal bones noted. Mastoid air cells and middle ear cavities are clear. The paranasal sinuses also appear to be generally clear. Soft tissues are unremarkable. Note is made of disconjugate gaze. IMPRESSION: 1. No acute intracranial abnormality identified. No acute intracranial hemorrhage. 2. Chronic changes as above with unchanged positioning of left frontal shunt catheter. 3. Persistent ventricular dilation. The above report was generated using voice recognition software. It may contain grammatical, syntax or spelling errors. Electronically signed by: Brain Garber M.D. 05/04/2017 6:27 PM Dictated Date/Time: 05/04/2017 6:20 PM
[2017-05-04 18:30] LABS: BASO % 0.6 %; BASO ABS # 0.05 K/uL (0-0.2); EOS % 1.2 %; HEMATOCRIT 45.2 % (42-52); HEMOGLOBIN 16.1 g/dL (14.0-18.0); IG# 0.03 K/uL (0.00-0.02); LYMPH % 15.2 %; LYMPH ABS # 1.22 K/uL (1.2-3.4); MEAN CELL VOLUME 90.9 fL (80-100); MEAN CORPUSCULAR HEMOGLOBIN 32.4 pg (25-34); MEAN CORPUSCULAR HGB CONC 35.6 g/dl (32-36); MONO % 10.2 %; MONO ABS # 0.82 K/uL (0.11-0.59); NEUT % 72.4 %; NEUT ABS # 5.82 K/uL (1.4-6.5); PLATELET COUNT 245 K/uL (130-400); RED CELL DISTRIBUTION WIDTH CV 12.4 % (11.5-14.5); RED CELL DISTRIBUTION WIDTH SD 40.9 fL (36.4-46.3); WHITE BLOOD COUNT 8.04 K/uL (4.8-10.8)
--- NOTE | 2017-05-04 18:57 | EMERGENCY ROOM VISIT NOTE ---
ED Visit Note First contact with patient: 17:10 Staff note: I have reviewed the Patients chart and have discussed this case with my PA. I generally agree with the ED note and findings.
[2017-05-04 19:17] VITALS: BP 115/68; PULSE 93; O2SAT 98
== END 2017-05-04 19:35 | disposition home or self-care (01) ==
LOC: C.EDB 17:05
DX: R51 Headache (principal); J45.909 Unspecified asthma, uncomplicated; F32.9 Major depressive disorder, single episode, unspecified; I10 Essential (primary) hypertension; R56.9 Unspecified convulsions; I73.00 Raynaud's syndrome without gangrene; Z83.3 Family history of diabetes mellitus; Z82.49 Family history of ischemic heart disease and other diseases of the circulatory system; F17.200 Nicotine dependence, unspecified, uncomplicated

== ENCOUNTER 2022-05-24 20:36 | Inpatient (IN) ==
[2022-05-24 21:55] LABS: Albumin Globulin Ratio 1.5 (0.9-2); Albumin Level 4.3 gm/dl (3.4-5.0); BUN Creatinine Ratio 11.7 (10-20); Bilirubin,Total 0.3 mg/dl (0.2-1.0); Calcium 9.1 mg/dl (8.5-10.1); Creatinine Clr Calc Pharmacy 119.4 ml/min; Est GFR (African American) 113.2 ml/min; Est GFR (Non-African American) 97.7 ml/min; Globulin 2.9 gm/dl (2.5-4.0); Potassium 3.2 mmol/L (3.5-5.1); Total Protein 7.2 gm/dl (6.0-8.3)
[2022-05-24 22:04] LABS: Basophils # (auto) 0.07 K/uL (0-0.2); Basophils % (auto) 0.7 %; Eosinophils # (auto) 0.08 K/uL (0-0.50); Eosinophils % (auto) 0.7 %; Hematocrit (blood only) 44.5 % (42.0-52.0); Hemoglobin 15.9 g/dl (14.0-18.0); Immature Granulocytes # (auto) 0.04 K/uL (0.01-0.20); Immature Granulocytes % (auto) 0.4 %; Lymphocytes # (auto) 1.48 K/uL (1.2-3.4); Lymphocytes % (auto) 13.8 %; Mean Corpuscular Hemoglobin 32.6 pg (25.0-34.0); Mean Corpuscular Hgb Conc 35.7 g/dL (32.0-36.0); Mean Corpuscular Volume 91.4 fL (80.0-100.0); Mean Platelet Volume 11.1 fL (9.4-12.4); Monocytes # (auto) 0.54 K/uL (0.11-0.59); Neutrophils # (auto) 8.51 K/uL (1.40-6.50); Neutrophils % (auto) 79.4 %; Platelet Count 267 K/uL (130-400); RDW Coefficient of Variation 12.5 % (11.5-14.5); RDW Standard Deviation 41.4 fL (36.4-46.3); Red Blood Count 4.87 M/uL (4.70-6.10); White Blood Count 10.72 K/ul (4.8-10.8)
[2022-05-24] MEDS ORDERED: POTASSIUM CHLORIDE CRTAB 20 MEQ TABCR PO STA (23:05)
--- NOTE | 2022-05-24 23:07 | Emergency Department Note ---
History of Present Illness General Chief complaint: Alcohol Intoxication Stated complaint: alcohol overdose Time Seen by Provider: 05/24/22 21:51 History of Present Illness This 27-year-old male presents to the ER with family for alcohol intoxication who has been drinking heavily for quite some time. Patient and family requesting detox. They would like to have admitted. Patient is not sure if has been taking his seizure medications. Patient denies drug use, chest pain, dyspnea or any other medical complaints. Home Medications Medication Instructions Recorded Confirmed Type levetiracetam 750 mg tablet 1,500 mg PO BID 02/09/18 05/24/22 History lisinopril 10 mg tablet 10 mg PO HS 02/09/18 05/24/22 History topiramate 100 mg tablet 200 mg PO BID 02/09/18 05/24/22 History fluticasone propionate 50 2 spray intranasal DAILY PRN 12/22/19 05/24/22 History mcg/actuation nasal Allergy Symptoms spray,suspension albuterol sulfate 90 mcg/actuation 1 puffs inhalation Q6H PRN 12/17/21 05/24/22 Rx aerosol inhaler shortness of breath or wheezing #18 grams famotidine 20 mg tablet 20 mg PO QAM 12/17/21 05/24/22 History acetaminophen 325 mg tablet 650 mg PO DIRECTED PRN Pain 05/24/22 05/24/22 History (Tylenol) buspirone 15 mg tablet 15 mg PO BID 05/24/22 05/24/22 History fluoxetine 10 mg tablet 5 mg PO DAILY 05/24/22 05/24/22 History ibuprofen 200 mg tablet 600 mg PO TID PRN Pain 05/24/22 05/24/22 History magnesium oxide 400 mg PO DAILY 05/24/22 05/24/22 History ondansetron HCl 4 mg tablet 4 mg PO Q6H PRN NAUSEA/VOMITING 05/24/22 05/24/22 History thiamine HCl (vitamin B1) 100 mg 400 mg PO DAILY 05/24/22 05/24/22 History tablet (Vitamin B-1) ziprasidone HCl 20 mg capsule 20 mg PO QPM 05/24/22 05/24/22 History Allergies Allergy/AdvReac Type Severity Reaction Status Date / Time Penicillins Allergy Severe throat Verified 05/24/22 23:24 swelling/hives Sulfa (Sulfonamide Allergy Severe throat Verified 05/24/22 23:24 Antibiotics) swelling/hives adhesive Allergy Intermediate blisters Verified 05/24/22 23:24 Past Med/Surg History Medical History (Updated 05/25/22 @ 00:18 by Yuridia Jones PA-C) Hypertension Raynaud disease Seizure disorder Traumatic brain injury Surgical History History of brain surgery Family History Other Diabetes Gallbladder disease Heart disease Hypertension Kidney disease Seizures Social History Smoking Status: Current some day smoker Tobacco Type: Cigarettes Preferred Language: Japanese marital status: Single current occupational status: unemployed Feels Safe at Home: Yes Review of Systems A total of 10 systems reviewed and were otherwise negative Physical Exam Vital Signs Vital Signs - 24 hr 05/24/22 20:45 05/24/22 20:45 05/24/22 20:45 Temperature 36.4 C L Temperature Source Oral Pulse Rate 77 Pulse Rate [Apical] 76 Pulse Rhythm Regular Pulse Rhythm [Apical] Pulse Strength Normal Pulse Strength [Apical] Respiratory Rate 14 20 Respiratory Effort / Characteristics Non-Labored Non-Labored Respiratory Depth Normal Normal Respiratory Pattern Regular Blood Pressure 143/73 H Blood Pressure [Left Arm] 143/73 H Blood Pressure Mean 96 Blood Pressure Mean [Left Arm] 96 Pulse Oximetry 95 94 Oxygen Delivery Method Room Air Room Air Room Air Sepsis Recent Fever Within 48 Hours No Sepsis New/Unexplained Change in Mental Status N/A Sepsis Action Taken by Nursing No Action Required 05/24/22 20:45 05/24/22 22:25 Temperature Temperature Source Pulse Rate 74 Pulse Rate [Apical] 77 Pulse Rhythm Regular Pulse Rhythm [Apical] Regular Pulse Strength Pulse Strength [Apical] Normal Respiratory Rate 14 20 Respiratory Effort / Characteristics Non-Labored Respiratory Depth Normal Respiratory Pattern Regular Blood Pressure Blood Pressure [Left Arm] 143/73 H Blood Pressure Mean Blood Pressure Mean [Left Arm] 96 Pulse Oximetry 94 93 Oxygen Delivery Method Room Air Room Air Sepsis Recent Fever Within 48 Hours Sepsis New/Unexplained Change in Mental Status Sepsis Action Taken by Nursing PHYSICAL EXAM: VITALS: Vitals are noted on the nurse's note and reviewed by myself. Vital signs stable. GENERAL: White male with EtOH odor with family present, in no acute distress, nondiaphoretic, well-developed well-nourished. The patient is visibly intoxicated. SKIN: The skin was without obvious lacerations, abrasions, or rashes. There is no tenting of the skin. Capillary reflex less than 2 seconds. HEENT: Normocephalic, atraumatic. PERRLA. EOMI. Conjunctiva with mild injection without icterus. Tympanic membranes without erythema or effusion bilaterally no hemotympanum. External auditory canals are clear. Nares patent bilaterally. No epistaxis. Oropharynx without erythema or exudate. Uvula midline. Oral mucosal moist. No lymphadenopathy. Neck is supple without cervical spine tenderness. HEART: Regular rate and rhythm LUNGS: Clear to auscultation bilaterally without wheezes, rales or rhonchi. ABDOMEN: Positive bowel sounds x 4. Normal tympanic percussion. Soft, nontender, without masses or organomegaly. MUSCULOSKELETAL: Gross motor function of the upper and lower extremities intact. The patient has a staggering gait. NEUROLOGIC: The patient is visibly intoxicated. Once they were more sober they were alert and oriented to person place and time. Course Administered Medications Lactated Ringer's (Lr) 1,000 mls @ 80 mls/hr IV .[id number] STA Stop: 05/25/22 11:42 Last Admin: 05/25/22 00:09 Dose: 80 mls/hr Documented By: AKHIL Discontinued Medications Thiamine HCl 100 mg/ Syringe 10 mls @ 2 mls/min IV NOW STA Stop: 05/24/22 23:18 Last Admin: 05/24/22 23:55 Dose: 2 mls/min Documented By: CARLOS Levetiracetam (Levetiracetam 500 Mg Tab) 1,500 mg PO NOW STA Stop: 05/24/22 23:38 Last Admin: 05/24/22 23:55 Dose: 1,500 mg Documented By: CARLOS Potassium Chloride (Potassium Chloride Crtab 20 Meq Tabcr) 40 meq PO NOW STA Stop: 05/24/22 23:06 Last Admin: 05/24/22 23:55 Dose: 40 meq Documented By: CARLOS Medical Decision Making Medical Records Attestation: I reviewed the patient's medical records. Home Medications Current Medication List: was personally reviewed by me Laboratory Data Attestation: I reviewed the patient's lab results. 05/24/22 21:36 05/24/22 21:10 Lab Results 05/24/22 05/24/22 05/24/22 Range/Units 21:10 21:10 21:10 WBC (4.8-10.8) K/ul RBC (4.70-6.10) M/uL Hgb (14.0-18.0) g/dl Hct (42.0-52.0) % MCV (80.0-100.0) fL MCH (25.0-34.0) pg MCHC (32.0-36.0) g/dL RDW Std Deviation (36.4-46.3) fL RDW Coeff of Kanika (11.5-14.5) % Plt Count (130-400) K/uL MPV (9.4-12.4) fL Immature Gran % (Auto) % Neut % (Auto) % Lymph % (Auto) % Hart % (Auto) % Eos % (Auto) % Baso % (Auto) % Neut # (Auto) (1.40-6.50) K/uL Lymph # (Auto) (1.2-3.4) K/uL [place] # (Auto) (0.11-0.59) K/uL Eos # (Auto) (0-0.50) K/uL Baso # (Auto) (0-0.2) K/uL Immature Gran # (Auto) (0.01-0.20) K/uL PT 10.7 (9.0-12.0) Seconds INR 1.0 (0.9-1.1) Sodium 140 (136-145) mmol/L Potassium 3.2 L (3.5-5.1) mmol/L Chloride 111 H (98-107) mmol/L Carbon Dioxide 17 L (21-32) mmol/L Anion Gap 12 H (3-11) BUN 12 (6-23) mg/dl Creatinine 1.03 (0.6-1.4) mg/dl Est Cr Clr Drug Dosing 119.4 ml/min Est GFR ( Amer) 113.2 ml/min Est GFR (Non-Af Amer) 97.7 ml/min BUN/Creatinine Ratio 11.7 (10-20) Glucose 111 H (70-99(Fasting)) mg/dl POC Glucose (70-99) mg/dl Calcium 9.1 (8.5-10.1) mg/dl Magnesium 2.4 (1.7-2.4) mg/dl Total Bilirubin 0.3 (0.2-1.0) mg/dl AST 68 H (13-39) U/L ALT 127 H (7-52) U/L Alkaline Phosphatase 114 H (34-104) U/L Total Protein 7.2 (6.0-8.3) gm/dl Albumin 4.3 (3.4-5.0) gm/dl Globulin 2.9 (2.5-4.0) gm/dl Albumin/Globulin Ratio 1.5 (0.9-2) Ethyl Alcohol mg/dL 259.9 H (<10.0) mg/dl 05/24/22 05/24/22 Range/Units 21:36 21:42 WBC 10.72 (4.8-10.8) K/ul RBC 4.87 (4.70-6.10) M/uL Hgb 15.9 (14.0-18.0) g/dl Hct 44.5 (42.0-52.0) % MCV 91.4 (80.0-100.0) fL MCH 32.6 (25.0-34.0) pg MCHC 35.7 (32.0-36.0) g/dL RDW Std Deviation 41.4 (36.4-46.3) fL RDW Coeff of Kanika 12.5 (11.5-14.5) % Plt Count 267 (130-400) K/uL MPV 11.1 (9.4-12.4) fL Immature Gran % (Auto) 0.4 % Neut % (Auto) 79.4 % Lymph % (Auto) 13.8 % Hart % (Auto) 5.0 % Eos % (Auto) 0.7 % Baso % (Auto) 0.7 % Neut # (Auto) 8.51 H (1.40-6.50) K/uL Lymph # (Auto) 1.48 (1.2-3.4) K/uL Hart # (Auto) 0.54 (0.11-0.59) K/uL Eos # (Auto) 0.08 (0-0.50) K/uL Baso # (Auto) 0.07 (0-0.2) K/uL Immature Gran # (Auto) 0.04 (0.01-0.20) K/uL PT (9.0-12.0) Seconds INR (0.9-1.1) Sodium (136-145) mmol/L Potassium (3.5-5.1) mmol/L Chloride (98-107) mmol/L Carbon Dioxide (21-32) mmol/L Anion Gap (3-11) BUN (6-23) mg/dl Creatinine (0.6-1.4) mg/dl Est Cr Clr Drug Dosing ml/min Est GFR ( Amer) ml/min Est GFR (Non-Af Amer) ml/min BUN/Creatinine Ratio (10-20) Glucose (70-99(Fasting)) mg/dl POC Glucose 119 H (70-99) mg/dl Calcium (8.5-10.1) mg/dl Magnesium (1.7-2.4) mg/dl Total Bilirubin (0.2-1.0) mg/dl AST (13-39) U/L ALT (7-52) U/L Alkaline Phosphatase (34-104) U/L Total Protein (6.0-8.3) gm/dl Albumin (3.4-5.0) gm/dl Globulin (2.5-4.0) gm/dl Albumin/Globulin Ratio (0.9-2) Ethyl Alcohol mg/dL (<10.0) mg/dl MDM Narrative Prior records/ancillary studies reviewed. Triage Nursing notes reviewed. Additional history obtained from family. The patient's history was concerning for altered mental status and a possible alcohol overdose. Differential diagnosis: Etiologies such as alcohol intoxication, toxicologic, infection, hypoglycemia, electrolyte abnormalities, cardiac sources, intracerebral event, neurologic, as well as others were entertained. Physical examination: As above. The patient is clinically intoxicated. no trauma noted. ER treatment provided: Monitoring An order was placed for continuous cardiac monitoring. The monitor shows a rate of 60-1 50 with a sinus rhythm per my independent hypertension Aspiration precautions The patient was frequently reassessed. Diagnostic interpretation by me: Cardiac monitoring did not reveal any evidence of dysrhythmia. The labs Independently Interpreted by myself revealed no worrisome leukocytosi s, stable H&H, elevated LFTs. The patient's blood alcohol level was 259.9 mg/dL. Consultation: I spoke with the hospitalist and the case was reviewed. Patient will be admitted to the medical service for alcohol abuse and detox. The patient's history was reviewed once they were more coherent and their intoxication cleared. The patient states they have been in good health recently and had no medical complaints. The patient admitted to consuming alcohol. No additional concerning findings were noted. The patient complained of no symptoms to suggest assault. This appears to be consistent with acute alcohol tox occasion in an alcoholic that is noncompliant with his seizure medications. Patient and family requesting admission for detox. Medicine was consulted and the case was discussed. Labs were independently interpreted by myself. Patient be admitted to the medical service. By the evaluation outlined above emergent etiologies such as trauma, infection, hypoglycemia, electrolyte abnormalities, cardiac sources, intracerebral event, neurologic,as well as others were deemed relatively unlikely. The patient was informed about the findings as listed above. The patient was co unseled on the dangers of excessive alcohol use. I gave my usual and customary discussion regarding this issue. All questions were answered and the patient was pleased with the treatment. Return instructions were outlined and the patient was discharged in stable condition once their mental status improved and a safe destination was confirmed. The chart was completed utilizing [employer] Speech voice recognition software. Grammatical errors, random word insertions, pronoun errors, and incomplete sentences are an occassional consequence of this system due to software limitations, ambient noise, and hardware issues. Any formal questions or concerns about the content, text, or information contained within the body of this dictation should be directly addressed to the physician assistant quality manager for clarification. Impression & Plan Alcoholic intoxication Discharge Plan Visit Data Chief Complaint: Alcohol Intoxication Stated Complaint: alcohol overdose ED Provider: José Luis Pickett ED Midlevel Provider: Yuridia Jones Discharge Problem: Alcoholic intoxication Patient Disposition: Admitted As Inpatient Condition: Good Forms Stand Alone Forms: My [facility] Prescriptions Prescriptions: No Action lisinopril 10 mg Tablet 10 mg PO HS levetiracetam 750 mg tablet 1,500 mg PO BID topiramate 100 mg tablet 200 mg PO BID fluticasone propionate 50 mcg/actuation spray,suspension 2 spray INTRANASAL DAILY PRN (Reason: Allergy Symptoms) ziprasidone HCl 20 mg capsule 20 mg PO QPM buspirone 15 mg tablet 15 mg PO BID acetaminophen [Tylenol] 325 mg Tablet 650 mg PO DIRECTED PRN (Reason: Pain) ondansetron HCl 4 mg tablet 4 mg PO Q6H PRN (Reason: NAUSEA/VOMITING) Rx Instructions: LAST FILLED 05/2021 fluoxetine [Prozac] 10 mg Tablet 5 mg PO DAILY Rx Instructions: NO LAST FILL ON EXT MED HX. thiamine HCl (vitamin B1) [Vitamin B-1] 100 mg Tablet 400 mg PO DAILY Rx Instructions: UNSURE IF PT TAKING. ibuprofen 200 mg Tablet 600 mg PO TID PRN (Reason: Pain) magnesium oxide 400 mg magnesium Tablet 400 mg PO DAILY Rx Instructions: UNSURE IF PT TAKING famotidine 20 mg Tablet 20 mg PO QAM albuterol sulfate 90 mcg/actuation HFA aerosol inhaler 1 puffs INH Q6H PRN (Reason: shortness of breath or wheezing) Qty: 18 0RF Referrals Referrals: Tremaine Rivas DO [Primary Care Provider] -
[2022-05-24] MEDS ORDERED: LACTATED RINGER'S 1,000 ML IV STA (23:13)
[2022-05-24] MEDS ORDERED: THIAMINE HCL 100 MG in SYRINGE 9 ML IV STA (23:14)
[2022-05-24] MEDS ORDERED: levETIRAcetam 500 MG TAB PO STA (23:37)
[2022-05-24 23:41] LABS: Prothrombin Time 10.7 Seconds (9.0-12.0)
[2022-05-24 23:45] LABS: Magnesium 2.4 mg/dl (1.7-2.4)
[2022-05-24] MEDS ORDERED: TOPIRAMATE 100 MG TAB PO STA (23:45)
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
[2022-05-25] MEDS ORDERED: Ativan IV Alcohol Withdrawal--Active Protocol IV PRN (00:02)
[2022-05-25] MEDS ORDERED: LORazepam 2 MG/1 ML VIAL IV PRN ×3 (00:02)
[2022-05-25] MEDS ORDERED: FLUTICASONE PROPIONATE NA SPR 16 GM BTL PRN (04:12)
[2022-05-25] MEDS ORDERED: oxyCODONE HCL IR 5 MG TAB (IMMEDIATE RELEASE) PO PRN (04:12)
[2022-05-25] MEDS ORDERED: PROMETHAZINE HCL 12.5 MG in SODIUM CHLORIDE 0.9% 50 ML IV PRN (04:12)
[2022-05-25] MEDS: lisinopril 10 MG TAB PO SCH ×2 (06:01→21:34)
[2022-05-25 06:33] LABS: Basophils # (auto) 0.07 K/uL (0-0.2); Basophils % (auto) 0.8 %; Eosinophils # (auto) 0.14 K/uL (0-0.50); Eosinophils % (auto) 1.6 %; Hematocrit (blood only) 45.4 % (42.0-52.0); Hemoglobin 16.2 g/dl (14.0-18.0); Immature Granulocytes # (auto) 0.03 K/uL (0.01-0.20); Immature Granulocytes % (auto) 0.3 %; Lymphocytes # (auto) 2.93 K/uL (1.2-3.4); Lymphocytes % (auto) 33.6 %; Mean Corpuscular Hemoglobin 32.3 pg (25.0-34.0); Mean Corpuscular Hgb Conc 35.7 g/dL (32.0-36.0); Mean Corpuscular Volume 90.4 fL (80.0-100.0); Mean Platelet Volume 11.3 fL (9.4-12.4); Monocytes # (auto) 0.62 K/uL (0.11-0.59); Monocytes % (auto) 7.1 %; Neutrophils # (auto) 4.92 K/uL (1.40-6.50); Neutrophils % (auto) 56.6 %; Platelet Count 284 K/uL (130-400); RDW Coefficient of Variation 12.5 % (11.5-14.5); RDW Standard Deviation 41.2 fL (36.4-46.3); Red Blood Count 5.02 M/uL (4.70-6.10); White Blood Count 8.71 K/ul (4.8-10.8)
[2022-05-25 06:38] LABS: Albumin Globulin Ratio 1.6 (0.9-2); Albumin Level 4.4 gm/dl (3.4-5.0); BUN Creatinine Ratio 10.6 (10-20); Bilirubin,Total 0.3 mg/dl (0.2-1.0); Calcium 8.9 mg/dl (8.5-10.1); Creatinine Clr Calc Pharmacy 144.7 ml/min; Est GFR (African American) 136.5 ml/min; Est GFR (Non-African American) 117.7 ml/min; Globulin 2.8 gm/dl (2.5-4.0); Potassium 3.6 mmol/L (3.5-5.1); Total Protein 7.2 gm/dl (6.0-8.3)
[2022-05-25] MEDS ORDERED: GABAPENTIN 600 MG TAB PO ONE (07:22)
[2022-05-25] MEDS ORDERED: GABAPENTIN 1200MG ALCOHOL WITHDRAWAL LOAD PO STA (07:22)
[2022-05-25 07:55] LABS: Base Excess ABG -6.3 mEq/L (-9-1.8); HCO3 ABG 18 mmol/L (19-24); Oxygen Saturation ABG 99.7 % (90-95); PCO2 ABG 32 mmHg (35-46); PO2 ABG 104 mmHg (80-95); pH ABG 7.36 (7.35-7.45)
[2022-05-25] MEDS: TOPIRAMATE 100 MG TAB PO SCH ×2 (08:02→21:33)
[2022-05-25] MEDS: THIAMINE HCL 100 MG TAB PO SCH (08:02)
[2022-05-25] MEDS: busPIRone 15 MG TAB PO SCH ×2 (08:02→21:34)
[2022-05-25 08:03] LABS: Allen Test Pos (Pos)
[2022-05-25] MEDS: FOLIC ACID 1 MG TAB PO SCH (08:03)
[2022-05-25] MEDS: levETIRAcetam 500 MG TAB PO SCH ×2 (08:03→21:34)
[2022-05-25] MEDS: FAMOTIDINE 20 MG TAB PO SCH (08:03)
[2022-05-25] MEDS: FLUoxetine HCL 20 MG/5 ML 120ML BTL PO SCH (08:03)
[2022-05-25] MEDS: MULTIVITAMIN TAB PO SCH (08:04)
[2022-05-25] MEDS: ENOXAPARIN INJ 40 MG/0.4 ML SYR SQ SCH (08:04)
--- NOTE | 2022-05-25 09:49 | Ultrasound Report ---
US liver CLINICAL HISTORY: Elevated liver enzymes. COMPARISON STUDY: Right upper quadrant ultrasound April 14, [address] of the abdomen and pelvis September 24, 2021. FINDINGS: Hepatic echogenicity is increased. This represents hepatic steatosis with areas of sparing within the gallbladder fossa. No hepatic lesions are identified. No biliary ductal dilatation is pres ent. Common bile duct measures 3 mm in caliber. The gallbladder is normal. There are no gallstones. P ancreatic body is normal. Head and tail are slightly obscured. There is no right hydronephrosis. IMPRESSION: 1. Hepatic steatosis. 2. No gallstones or biliary ductal dilatation. ACT 112: Negative or not required by law. Electronically signed by: Abisai Walsh M.D. 05/25/2022 9:48 AM
[2022-05-25] MEDS: GABAPENTIN 600 MG TAB PO SCH ×2 (13:07→21:34)
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
[2022-05-25] MEDS: SODIUM CHLORIDE 0.9% 1000ML 1,000 ML IV SCH (16:49)
--- NOTE | 2022-05-25 17:49 | CT Scan Report ---
RIGHT SHOULDER CT CT DOSE: 391.53 mGycm HISTORY: r shoulder pain TECHNIQUE: Multiaxial CT images of the right shoulder were performed and reformatted in the sagittal and coronal plane without the use of contrast. A dose lowering technique was utilized adhering to th e principles of ALARA. COMPARISON: None. FINDINGS: No acute fracture or dislocation within the right shoulder. The visualized right clavicle a nd ribs appear intact. No significant joint effusion. Soft tissues are unremarkable. No evidence for avascular necrosis within the humeral head. IMPRESSION: No fracture or dislocation within the right shoulder. ACT 112: Negative or not required by law. Electronically signed by: Avinash Butler M.D. 05/25/2022 5:47 PM
[2022-05-25] MEDS: ACETAMINOPHEN 500 MG TAB PO PRN (18:24)
[2022-05-25] MEDS: NICOTINE 14 MG/24 HR PATCH TD SCH (18:42)
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
[2022-05-26] MEDS: GABAPENTIN 600 MG TAB PO SCH ×3 (05:24→21:19)
[2022-05-26] MEDS: SODIUM CHLORIDE 0.9% 1000ML 1,000 ML IV SCH (09:05)
[2022-05-26] MEDS: NICOTINE 14 MG/24 HR PATCH TD SCH (09:06)
[2022-05-26 09:08] LABS: BUN Creatinine Ratio 13.8 (10-20); Creatinine Clr Calc Pharmacy 131.4 ml/min; Est GFR (African American) 126.5 ml/min; Est GFR (Non-African American) 109.1 ml/min; Magnesium 1.9 mg/dl (1.7-2.4); Phosphorus 3.4 mg/dl (2.5-4.9); Potassium 3.7 mmol/L (3.5-5.1)
[2022-05-26] MEDS: ENOXAPARIN INJ 40 MG/0.4 ML SYR SQ SCH (09:09)
[2022-05-26] MEDS: FOLIC ACID 1 MG TAB PO SCH (09:09)
[2022-05-26] MEDS: busPIRone 15 MG TAB PO SCH ×2 (09:10→20:40)
[2022-05-26] MEDS: THIAMINE HCL 100 MG TAB PO SCH (09:10)
[2022-05-26] MEDS: FAMOTIDINE 20 MG TAB PO SCH (09:11)
[2022-05-26] MEDS: TOPIRAMATE 100 MG TAB PO SCH ×2 (09:11→20:39)
[2022-05-26] MEDS: levETIRAcetam 500 MG TAB PO SCH ×2 (09:11→20:40)
[2022-05-26] MEDS: MULTIVITAMIN TAB PO SCH (09:11)
[2022-05-26] MEDS: FLUoxetine HCL 20 MG/5 ML 120ML BTL PO SCH (09:21)
[2022-05-26] MEDS: ACETAMINOPHEN 500 MG TAB PO PRN ×2 (09:25→19:34)
--- NOTE | 2022-05-26 16:41 | Hospitalist Progress Note ---
Date of Service May 26, 2022 Assessment & Plan (1) Alcoholic intoxication: Plan: Alcohol Withdrawal patient reports 6 beers twice a week Alcohol Withdrawal protocol- including Gabapentin taper denies depression or anxiety monitor closely 05/26 stable continue Protocol R Shoulder pain history of trauma chronic, but worse lately drinks alcohol to help with pain CT shoulder ordered (cannot do MRI due to presence of [employer] shunt) Ortho consult Ice pack, Lidoderm patch 05/26 CT shoulder: no acute fractures, no dislocation Ortho- no intervention for now PRN pain meds Elevated Liver Enzyme stable Liver US: unrevealing Hypertension stable traumatic ICH status post surgery hx posttraumatic seizure disorder, well-controlled on regimen mood disorder, at baseline DVT prophylaxis. Lovenox subcu Full code Disposition anticipate d/c home once Gabapentin protocol completed plan of care discussed with patient in detail and at length all questions answered he is understanding, agreeable, comfortable with the plan of care tried to call patient's mother multiple times- call not going thru Admission and Anticipated Discharge Date Admission Date: May 25, 2022 Subjective ff up for alcohol withdrawal, etc seen sitting up in bed, comfortable states he continues to feel better overall denies tremors, sweats, hallucinations R shoulder pain manageable no other symptoms Review of Systems Review of Systems: all noted and negative except for above Physical Exam Physical Exam: General- oriented x 3, not in distress, speaks in sentences with no effort or accessory muscle use Eyes- anicteric Neck- no JVD Lungs- clear BS bilaterally, no rales/wheezes Heart- normal rate, regular rhythm; no murmurs Abdomen- normal bowel sounds, nondistended, soft, no tenderness Extremities- no pretibial edema, no calf tenderness Neuro- alert, oriented x 3; no gross focal neurologic deficits Skin- warm & dry Results & Data Results & Data ([facility]) Vital Signs (Past 12 Hours) Vital Signs Temp Pulse Pulse Resp BP Pulse Ox O2 Del Method 05/26/22 16:26 85 05/26/22 15:57 36.8 C 66 18 128/76 97 Room Air 05/26/22 11:24 36.3 C L 77 20 131/86 97 Room Air 05/26/22 07:45 36.6 C 73 18 118/77 96 Room Air 05/26/22 07:26 66 all noted and reviewed including below (1) Alcoholic intoxication Complication of substance-induced condition: uncomplicated Qualified Code(s): F10.920 - Alcohol use, unspecified with intoxication, uncomplicated
[2022-05-26] MEDS: lisinopril 10 MG TAB PO SCH (20:39)
[2022-05-27] MEDS: busPIRone 15 MG TAB PO SCH (08:27)
[2022-05-27] MEDS: MULTIVITAMIN TAB PO SCH (08:28)
[2022-05-27] MEDS: FAMOTIDINE 20 MG TAB PO SCH (08:28)
[2022-05-27] MEDS: NICOTINE 14 MG/24 HR PATCH TD SCH (08:28)
[2022-05-27] MEDS: levETIRAcetam 500 MG TAB PO SCH (08:28)
[2022-05-27] MEDS: THIAMINE HCL 100 MG TAB PO SCH (08:28)
[2022-05-27] MEDS: TOPIRAMATE 100 MG TAB PO SCH (08:28)
[2022-05-27] MEDS: FOLIC ACID 1 MG TAB PO SCH (08:28)
[2022-05-27] MEDS: ENOXAPARIN INJ 40 MG/0.4 ML SYR SQ SCH (08:30)
[2022-05-27] MEDS: FLUoxetine HCL 20 MG/5 ML 120ML BTL PO SCH (08:30)
[2022-05-27] MEDS ORDERED: GABAPENTIN 600 MG TAB PO SCH (10:00)
[2022-05-27 10:19] LABS: BUN Creatinine Ratio 9.5 (10-20); Calcium 9.2 mg/dl (8.5-10.1); Creatinine Clr Calc Pharmacy 129.9 ml/min; Est GFR (African American) 124.9 ml/min; Est GFR (Non-African American) 107.7 ml/min; Potassium 3.6 mmol/L (3.5-5.1)
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
[2022-05-28] MEDS ORDERED: GABAPENTIN 600 MG TAB PO SCH (22:00)
== END 2022-05-27 15:08 | disposition home or self-care (01) | DRG 897 ==
LOC: ED 20:36 → EDINP 20:36 → 2N 05-25 04:13